=== PATIENT | female | born 1990 | race Caucasian/White ===

== ENCOUNTER 2019-12-23 13:44 | Emergency (ER) | payer BC, SELFPAY ==
--- NOTE | 2019-12-23 14:53 | RAD ---
Exam: XR Knee Lt 4 View STANDARD HISTORY: Left knee pain after mechanical fall. COMPARISON: None FINDINGS: There is a nondisplaced obliquely oriented fracture involving the left fibular diaphysis. No addition al fracture is seen, and there is no dislocation. IMPRESSION: Fracture proximal left fibular diaphysis.
--- NOTE | 2019-12-23 14:54 | RAD ---
Exam: XR Ankle Lt 3 View STANDARD HISTORY: Left knee pain, left leg pain post fall COMPARISON: None FINDINGS: No acute fracture, dislocation, or other acute osseous abnormality is identified. The ankle mortise is congruent. There does appear to be mild subcutaneous soft tissue swelling at the ankle pain IMPRESSION: Mild subcutaneous soft tissue swelling without evidence of a fracture.
[2019-12-23] MEDS ORDERED: Ketorolac Tromethamine 30 MG/ML VIAL ONE (14:57)
[2019-12-23] MEDS ORDERED: HYDROcodone/Acetaminophen 5/325 mg Tablet ONE (15:20)
== END 2019-12-23 16:24 | disposition home or self-care (01) ==
LOC: ERS 13:44
DX: S82.435A Nondisplaced oblique fracture of shaft of left fibula, initial encounter for closed fracture (principal); F17.210 Nicotine dependence, cigarettes, uncomplicated; E66.9 Obesity, unspecified; W17.89XA Other fall from one level to another, initial encounter
CPT/HCPCS: 96372; J1885